=== PATIENT | female | born 2000 | race American Indian/Alaskan Native ===

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

== ENCOUNTER 2020-10-14 11:14 | Emergency (ER) | payer MEDICAID, OTHER | END 2020-10-14 13:25 | disposition left against medical advice (07) | LOC: ED 11:14 | DX: Z04.1 Encounter for examination and observation following transport accident (principal); Z53.21 Procedure and treatment not carried out due to patient leaving prior to being seen by health care provider ==